=== PATIENT | female | born 1980 | race Caucasian/White ===

== ENCOUNTER 2018-11-08 05:40 | Day surgery (SDC) | payer BC ==
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
[~2018-11-08 05:40] MED LIST: Buffered Lidocaine 1% SYRIN* 1 ML/SYRINGE INTRADERM ONE
[2018-11-08] MEDS ORDERED: Famotidine IV* 10 MG/ML 2 ML (20 mg) IV ONE (06:00)
[2018-11-08] MEDS ORDERED: Lactated Ringers 1000 ML Bag* 1,000 ML IV SCH (06:00)
[2018-11-08] MEDS ORDERED: Dexamethasone IV* 4 MG/ML 1 ML (4 MG) IV SLOW PU ONE (06:00)
[2018-11-08] MEDS ORDERED: Dexamethasone IV* 4 MG/ML 1 ML (4 MG) ONE (06:23)
[2018-11-08] MEDS ORDERED: ceFAZolin 2 GM in NS PREMIX(*) 2 GM/100 ML BAG IVPB ONE (06:24)
[2018-11-08] MEDS ORDERED: Buffered Lidocaine 1% SYRIN* 1 ML/SYRINGE INTRADERM ONE (06:24)
[2018-11-08] MEDS ORDERED: Famotidine IV* 10 MG/ML 2 ML (20 mg) ONE (06:24)
[2018-11-08] MEDS ORDERED: Bupivacaine 0.5%* 50 ML VIAL ONE (07:14)
[2018-11-08] MEDS ORDERED: Lidocaine 1% INJ* 10 MG/ML 30 ML SDV ONE (07:14)
[2018-11-08] MEDS ORDERED: Bupivacaine 0.5% W/EPI SDV* 30 ML VIAL ONE (07:14)
[2018-11-08] MEDS ORDERED: KETAMINE HCL* 50 MG/ML 10 ML VIAL ONE (07:15)
[2018-11-08] MEDS ORDERED: fentaNYL* 50 MCG/ML 2 ML VIAL (100 MCG VIAL) ONE ×2 (07:15→08:19)
[2018-11-08] MEDS ORDERED: Midazolam* 1 MG/ML 5 ML VIAL (5 MG) ONE (07:15)
[2018-11-08] MEDS ORDERED: Propofol* 10 MG/ML 20 ML BTL ONE ×2 (07:16→08:11)
[2018-11-08] MEDS ORDERED: Lidocaine 2% PF * 5 ML VIAL ONE (07:16)
[2018-11-08] MEDS ORDERED: HYDROcodone/ACETAMIN 5-325 MG* 1 TAB PO PRN (07:27)
[2018-11-08] MEDS ORDERED: fentaNYL* 50 MCG/ML 2 ML VIAL (100 MCG VIAL) IV PRN (07:27)
[2018-11-08] MEDS ORDERED: Naloxone* 0.4 MG/ML 1 ML VIAL IV PRN (07:27)
[2018-11-08] MEDS ORDERED: DiMENhydriNATE IV* 50 MG/ML VIAL IV PUSH PRN (07:27)
[2018-11-08] MEDS ORDERED: oxyCODONE/Acetamin 5/325 MG* TAB PO PRN (07:27)
[2018-11-08] MEDS ORDERED: PROCHLORPERAZINE INJ 5 MG/ML 2 ML VIAL ONE (07:59)
[2018-11-08] MEDS ORDERED: Ondansetron INJ* 2 MG/ML VIAL ONE (08:39)
--- NOTE | 2018-11-08 09:17 | BRIEFOPN ---
Brief Operative Note - Surgery Procedures: Procedures ARTIF RUPT MEMBRANES NEC (06/06/02) EKG (06/06/02) MONITORING NOS (06/06/02) IMPLANT OR REPLACEMENT OF SPINAL NEUROSTIMULATOR LEAD(S) (06/24/14) INJECTION INTO JOINT (06/27/13) INSERT OR REPLACE OF OTH NEUROSTIMULATOR PULSE GENERATOR (06/24/14) SPINAL CANAL INJECT NEC (08/21/13) VACUUM EXT DEL W EPISIOT (06/06/02) Op Note 11/08/18 (dictated) Pre-op dx: right breast lumps Post-op dx: same Procedure: excision right breast lumps x 2 Surgeon: Leland Asst: none Anesth: local-MAC EBL: 5 cc SCDs: on during surgery abx: given pre-op Complications: none Pt. tolerated procedure well and was transferred to in a stable condition. CL[facility]oster
[2018-11-08 09:37] VITALS: BP 110/59
--- NOTE | 2018-11-08 10:19 | OP ---
CC: Elenita Douglass NP * DATE OF OPERATION: 11/08/18 - [facility] DATE OF : 12/18/18 SURGEON: Marielle Ha MD. PHOTOGRAMMETRIC SURVEYOR: There was no commissary assistant for this case. PRE-OP DIAGNOSIS: Right breast lump. POST-OP DIAGNOSIS: Right breast lump. OPERATIVE PROCEDURE: Excision of right breast lumps x2. INDICATIONS: Ms. Jade is a 37-year-old woman who has identified two lumps in the breast. When she had imaging done, they were two lesions in the medial breast, close to each other. One was biopsied and appeared to be phyllodes tumor. The other was biopsied and appeared to be a fibroadenoma. In the lateral beast she had another lump that was biopsied and felt to be fibroadenoma. The lumps were bothering her and since one was a phyllodes tumor , the plans are made for surgical excision. DESCRIPTION OF PROCEDURE: On the morning of surgery she was brought to the operating room, placed on the OR table in the supine position and given IV sedation. The right breast was pepped and draped in the usual sterile fashion. Attention was turned first to the medial breast where two lumps were close to each other and an incision was made and subcutaneous tissue was divided with electrocautery down to the proximal level of the palpable lump, which was the phyllodes tumor. Dissection was continued around this tumor and was recognized that at its superior extent, it was very close to the edge of the tissue being removed. The dissection was continued inferiorly and did appear to encompass the second lesion, the fibroadenoma, which popped out of its capsule in the process of excising it. This tissue was removed, marked in the usual fashion and handed off as a specimen. Some additional tissue from super to and adjacent to the superior extent of the first specimen was also removed. This was done with electrocautery and was marked in the usual fashion and handed off as a specimen. Hemostasis was then achieved with electrocautery. Once this appeared adequate, the wound was irrigated with saline. Some additional local was instilled and then closure was accomplished with 3-0 Vicryl in the subcutaneous layer and the skin was closed with 4-0 Prolene in a subcuticular fashion. Attention was then turned to the lateral breast where after infiltrating with local anesthetic a curvilinear incision was made over the lump. Subcutaneous tissue was then divided with electrocautery down to the level to the lump. It was grasped and excised with electrocautery. Once this was out of the breast, hemostasis was achieved with electrocautery and then some additional local was instilled and then closure was accomplished with 3-0 Vicryl in the subcutaneous layer and the skin was closed with 4-0 Prolene in the subcuticular fashion. Steri-Strips and dry sterile dressings were applied to both incision sites. All sponge and incision counts were correct. She tolerated the procedure well and was transferred to Recovery in stable condition. [id number]/[facility] #: [id number] [place]
== END 2018-11-08 09:46 | disposition home or self-care (01) ==
LOC: OR 05:40
PROVIDERS: ATTEND Surgery
DX: D24.1 Benign neoplasm of right breast (principal); Z72.0 Tobacco use; M54.5 Low back pain
CPT/HCPCS: 88307; J0690; J0780; J1100; J2250; J2405; J2704; J3010; J3490